=== PATIENT | male | born 1955 | race Caucasian/White ===

== ENCOUNTER 2018-09-26 14:59 | Emergency (ER) | payer MEDICARE ==
[2018-09-26] MEDS ORDERED: HYDROcodone 10MG/APAP 325MG 1 EA TAB PO ONE (15:56)
--- NOTE | 2018-09-26 16:05 | ED.PDOC ---
History of Present Illness - General Chief Complaint: Dental/Mouth Stated Complaint: dental pain Time Seen by Provider: 09/26/18 15:56 Source: patient Exam Limitations: no limitations - History of Present Illness Initial Comments: HE COMES TO THE ED WITH DENTAL AND BILATERAL FACIAL PAIN WELLL PAIN TO THE TMJ AREAS, MORE ON THE LEFT THAN ON THE RIGHT. HE DENIES ANY FEVER. HAS BEEN TALING IBUPROFEN W/O ANY RELEIF. HE DENIES ANY CHEST PAIN. TAKES MEDS FOR ANXIETY. HE VOICES THAT COLD DRINKS HURT HIS LOWER SECOND MOLAR, EVEN TOUCHING THE LOWER LEFT MOLAR IS VERY TENDER. Timing/Duration: abrupt Severity: severe Prearrival Treatment: over the counter meds Improving Factors: nothing Worsening Factors: nothing Associated Symptoms: denies symptoms Allergies/Adverse Reactions: Allergies NO KNOWN ALLERGY Allergy (Verified 09/26/18 15:35) Home Medications: Ambulatory Orders Acetamin W/Cod #3 Tab [Tylenol w/CODEINE #3] 1 ea PO Q6HRS #20 tab 09/26/18 Clindamycin HCl 300 mg PO Q6HRS #40 cap 09/26/18 Review of Systems - Review of Systems Constitutional: States: no symptoms reported EENTM: States: mouth pain Respiratory: States: no symptoms reported Cardiology: States: no symptoms reported Gastrointestinal/Abdominal: States: no symptoms reported Genitourinary: States: no symptoms reported Musculoskeletal: States: no symptoms reported Skin: States: no symptoms reported Neurological: States: no symptoms reported Endocrine: States: no symptoms reported Hematologic/Lymphatic: States: no symptoms reported Past Medical History (General) - Patient Medical History Hx Seizures: No Hx Stroke: No Hx Dementia: No Hx Asthma: No Hx of COPD: No Hx Cardiac Disorders: No Hx Congestive Heart Failure: No Hx Pacemaker: No Hx Hypertension: No Hx Thyroid Disease: No Hx Diabetes: No Hx Gastroesophageal Reflux: No Hx Renal Disease: No Hx of HIV: No Hx MRSA: No Surgical History: other - Vaccination History Hx Influenza Vaccination: No Hx Pneumococcal Vaccination: No - Social History Hx Tobacco Use: No Hx Alcohol Use: No Hx Substance Use: No Hx Substance Use Treatment: No Hx Depression: No Family Medical History - Family History Mother Family History: Unknown Physical Exam - Physical Exam General Appearance: Alert, Well Developed, Well Groomed, Well Nourished Eye Exam: bilateral normal Ear Exam: bilateral ear: auricle normal Nasal Exam: normal inspection Throat Exam: pharynx normal, dental tenderness Neck: non-tender, full range of motion, supple, normal inspection Cardiovascular/Respiratory: regular rate, rhythm, no M/R/G, normal peripheral pulses, no JVD Abdominal Exam: non-tender, no organomegaly, no hernia Neurologic: no motor/sensory deficits, alert, oriented x 3 Skin Exam: normal color Progress - Results/Orders Results/Orders: PAIN MUCH BETTER AFTER NORCO. MAXILLOFACIAL CT-NO SINUSITIS AND NO TMJ. EKG: HR OF 53, NE INTERVAL OF 180, QRS OF 78, QTC OF 407, AXES OF 26. IMPRESSION: SINUS BRADYCARDIA, NO ACUTE INJURY PATTERN. THERE ARE NO PREVIOUS TRACINGS TO COMPARE WITH. Departure - Departure Clinical Impression: Dental abscess Time of Disposition: 17:31 Disposition: Discharge to Home or Self Care Condition: Good Departure Forms: ED Discharge - Pt. Copy, Patient Portal Self Enrollment Instructions: DI for Dental Pain Diet: resume usual diet Prescriptions: Acetamin W/Cod #3 Tab [Tylenol w/CODEINE #3] 1 ea PO Q6HRS #20 tab Clindamycin HCl 300 mg PO Q6HRS #40 cap Home Medications: Ambulatory Orders Acetamin W/Cod #3 Tab [Tylenol w/CODEINE #3] 1 ea PO Q6HRS #20 tab 09/26/18 Clindamycin HCl 300 mg PO Q6HRS #40 cap 09/26/18 Comments: FOLLOW UP WITH YOUR DENTIST LENO
[2018-09-26 16:21] VITALS: O2SAT 98
--- NOTE | 2018-09-26 16:33 | CT ---
EXAM DESCRIPTION: Maxillofacial CLINICAL HISTORY: 63 years Male SINUS PAIN, BILATERAL TMJ PAIN COMPARISON: None. TECHNIQUE: Contiguous axial images obtained through the maxillofacial region without IV contrast. Reformatted images obtained. This exam was performed according to our department optimization program which includes automated exposure control, adjustment of the mA and/or kv according to patient size and/or use of iterative reconstruction technique. FINDINGS: There is a probable lipoma of the left forehead scalp. The left TMJ is unremarkable. There is mild flattening of the right mandibular condylar head, likely chronic. No displaced fracture is seen. No subluxation or dislocation of either TMJ. The post septal orbits appear unremarkable. No fluid or significant mucosal thickening in the visualized paranasal sinuses. No facial bone fractures are identified. IMPRESSION: No clear etiology for acute TMJ pain or sinus pain is seen. Electronically signed by: Patrick Valle 09/26/2018 4:32 PM [facility]
[2018-09-26] MEDS ORDERED: CLINDAMYCIN HCL CAP 150 MG CAP PO ONE (17:29)
[2018-09-26 17:43] VITALS: BP 198/106; TEMP 97.2
== END 2018-09-26 17:41 | disposition home or self-care (01) ==
LOC: ER 14:59
DX: K04.7 Periapical abscess without sinus (principal); R00.1 Bradycardia, unspecified; R51 Headache